=== PATIENT | male | born 1945 | race Caucasian/White ===

== ENCOUNTER 2016-06-29 11:22 | Outpatient (CLI) | payer MEDICARE | END 2016-06-29 11:23 | disposition home or self-care (01) | DX: I48.4 Atypical atrial flutter (principal); I48.91 Unspecified atrial fibrillation ==

== ENCOUNTER 2017-01-23 09:21 | Outpatient (CLI) | payer MEDICARE ==
--- NOTE | 2017-01-24 08:22 | XRAY Report ---
LEFT FOOT: 01/23/2017 COMPARISON STUDY: None. INDICATION: Pain in left foot. TECHNIQUE: Three views of the left foot. FINDINGS: There are mild degenerative changes of the 1st metatarsophalangeal joint. Normal alignment. No evidence of acute fracture. Soft tissues appear grossly unremarkable. IMPRESSION: MILD 1ST MTP OSTEOARTHRITIS. JOB #: [id number] EXT JOB #:[id number]
== END 2017-01-23 09:22 | disposition home or self-care (01) ==
LOC: DI.S 09:21
PROVIDERS: ATTEND Nurse Practitioner Family
DX: M19.072 Primary osteoarthritis, left ankle and foot (principal)

== ENCOUNTER 2017-03-05 15:20 | Outpatient (CLI) | payer MEDICARE ==
--- NOTE | 2017-03-06 11:16 | CT Report ---
CT ABDOMEN AND PELVIS WITHOUT CONTRAST: 03/05/2017 HISTORY: Left lower quadrant pain. COMPARISON: Prostate ultrasound . TECHNIQUE: Axial noncontrast images of the abdomen and pelvis with sagittal and coronal reconstructions. FINDINGS: Linear subsegmental atelectasis or scarring at the lung bases. Negative liver, spleen, adrenal glands, and pancreas for the noncontrast technique. No radiopaque gallstones. Multiple right renal cysts are present, the dominant in the superior pole measuring 8.3 x 6.3 x 8.0 cm. No stones, solid masses, or evidence of obstruction. On the left kidney, there is a dominant lower pole cyst measuring 8.4 x 6.7 x 7.2 cm. Several subcentimeter areas of low attenuation are seen more superiorly, likely cysts but too small to accurately characterize. There is calcification in a normal sized aorta. No free upper abdominal fluid, adenopathy, or abnormal collections. The prostate is enlarged in size with a volume of approximately 100 mL. The bladder is unremarkable. No free fluid or abnormal collections. Minor diverticulosis without diverticulitis. No hernia is appreciated. There is degenerative change in the spine without bone destruction. IMPRESSION: BILATERAL RENAL CYSTS. NO EVIDENCE OF RENAL STONES OR OBSTRUCTION. ENLARGED PROSTATE, VOLUME APPROXIMATELY 100 ML. NO EVIDENCE OF DIVERTICULITIS, HERNIA, ABNORMAL COLLECTIONS OR OTHER FINDING TO EXPLAIN LEFT LOWER QUADRANT PAIN. JOB #: [id number] EXT JOB #: [id number] RIDGE
== END 2017-03-05 15:21 | disposition home or self-care (01) ==
LOC: DI 15:20
PROVIDERS: ATTEND Internal Medicine
DX: R10.32 Left lower quadrant pain (principal); N40.0 Benign prostatic hyperplasia without lower urinary tract symptoms; Q61.02 Congenital multiple renal cysts
CPT/HCPCS: 74176

== ENCOUNTER 2018-05-30 11:57 | Outpatient (CLI) | payer MEDICARE ==
--- NOTE | 2018-05-31 04:12 | XRAY Report ---
Reason: LOW BACK PAIN Procedure Date: 05/30/2018 Accession Number: [id number] / [id number] Procedure: XR - Lumbar Spine 2 View CPT Code: FULL RESULT: EXAM: LUMBOSACRAL SPINE RADIOGRAPHY EXAM DATE: 05/30/2018 12:59 PM. CLINICAL HISTORY: Chronic left-sided low back pain. COMPARISONS: None. TECHNIQUE: 3 views. FINDINGS: Alignment: There is mild rotatory right convex scoliosis of the lumbar spine centered at L3. Bones: Five [id number] lumbar vertebral bodies are present. No fractures or bone lesions. Right-sided sacralization of the lower lumbar vertebral body noted. Disks: Moderate to severe multilevel disk space height loss and endplate osteophytosis. Facets: Hypertrophic right-sided lower lumbar facet arthropathy. Sacroiliac Joints: No evidence of diastases. Mild degenerative change. Soft Tissues: Moderate calcific aortic atherosclerosis. Large amount of retained colonic fecal matter. Other: Moderate to severe right hip and moderate left hip degenerative changes noted. IMPRESSION: 1. No definite acute bone abnormality. 2. There is moderate multilevel lumbar degenerative change. 3. Large amount of retained colonic fecal matter. RADIA
== END 2018-05-30 11:58 | disposition home or self-care (01) ==
LOC: DI 11:57
PROVIDERS: ATTEND Nurse Practitioner Family
DX: M51.36 Other intervertebral disc degeneration, lumbar region (principal)
CPT/HCPCS: 72100

== ENCOUNTER 2020-04-27 17:58 | Emergency (ER) | payer MEDICARE ==
[2020-04-27] MEDS ORDERED: ceFAZolin 2 GM/50 ML 2 GM/50 ML BAG IV ONE (18:14)
--- NOTE | 2020-04-27 18:16 | ED Physician Documentation ---
PD HPI UPPER EXT INJURY - Stated complaint Stated Complaint: RT HAND LAC - Chief complaint Chief Complaint: Laceration - History obtained from History obtained from: Patient - Additonal information Additional information: Right-handed gentleman was working with a table saw at home and injured the second through fifth fingers of his right, dominant hand just prior to arrival. Tetanus is up-to-date, last month. He has a history of atrial fibrillation and is on Pradaxa. Review of Systems Ten Systems: 10 systems reviewed and negative Constitutional: reports: Reviewed and negative Cardiac: reports: Reviewed and negative Respiratory: reports: Reviewed and negative PD PAST MEDICAL HISTORY - Past Medical History Cardiovascular: High cholesterol, Atrial fibrillation, Other Respiratory: None Endocrine/Autoimmune: None GI: None : None HEENT: None Psych: None Musculoskeletal: Osteoarthritis Derm: None - Past Surgical History General: Colonoscopy Ortho: Arthroscopic surgery Cardiovascular: Other HEENT: Tonsil/Adenoidectomy - Present Medications Home Medications: Ambulatory Orders Medication Instructions Recorded Confirmed Sotalol [Betapace] 80 mg PO BID 07/16/13 07/16/13 Zolpidem [Ambien] 10 mg PO HS 07/16/13 07/16/13 lisinopriL [Zestril] 10 mg PO DAILY 07/16/13 07/16/13 Atorvastatin [Lipitor] 20 mg 04/27/20 04/27/20 hydrALAZINE [Apresoline] 25 mg 04/27/20 - Allergies Allergies/Adverse Reactions: Allergies Allergy/AdvReac Type Severity Reaction Status Date / Time No Known Drug Allergies Allergy Verified 04/27/20 18:12 PD ED PE NORMAL - Vitals Vital signs reviewed: Yes - General General: Alert and oriented X 3, Other (He is clearly in pain) - HEENT HEENT: PERRL, EOMI - Neck Neck: Supple, no meningeal sign, No bony TTP - Cardiac Cardiac: No gallop, No rub - Respiratory Respiratory: No respiratory distress, Clear bilaterally - Abdomen Abdomen: Non tender - Back Back: No CVA TTP, No spinal TTP - Extremities Extremities: Other (Complicated lacerations of the right second through fifth digits.) - Neuro Neuro: Alert and oriented X 3, Normal speech - Psych Psych: Normal mood, Normal affect Results - Vitals Vitals: Vital Signs - 24 hr 04/27/20 04/27/20 18:04 21:14 Temperature 37.7 C 37.4 C Heart Rate 79 96 Respiratory 16 16 Rate Blood Pressure 150/99 H 157/93 H O2 Saturation 100 94 Oxygen O2 Source Room air - Labs Labs: Laboratory Tests 04/27/20 04/27/20 04/27/20 18:56 18:56 19:10 WBC 7.6 RBC 4.26 L Hgb 14.3 Hct 42.6 MCV 100.0 H MCH 33.6 H MCHC 33.6 RDW 13.1 Plt Count 165 MPV 9.7 Neut # (Auto) 5.5 Lymph # (Auto) 1.3 L [place] # (Auto) 0.6 Eos # (Auto) 0.2 Baso # (Auto) 0.0 Absolute Nucleated RBC 0.00 Nucleated RBC % 0.0 Sodium 138 Potassium 4.5 Chloride 103 Carbon Dioxide 23 Anion Gap 12.0 BUN 15 Creatinine 1.0 Estimated GFR (MDRD) 73 L Glucose 96 Calcium 9.3 Nasal Adenovirus (PCR) NOT DETECTED Nasal B. parapertussis DNA (PCR) NOT DETECTED Nasal Coronavir 229E PCR NOT DETECTED Nasal Coronavir HKU1 PCR NOT DETECTED Nasal Coronavir NL63 PCR NOT DETECTED Nasal Coronavir OC43 PCR NOT DETECTED Nasal Enterovir/Rhinovir PCR NOT DETECTED Nasal Influenza B PCR NOT DETECTED Nasal Influenza A PCR NOT DETECTED Nasal Parainfluen 1 PCR NOT DETECTED Nasal Parainfluen 2 PCR NOT DETECTED Nasal Parainfluen 3 PCR NOT DETECTED Nasal Parainfluen 4 PCR NOT DETECTED Nasal RSV (PCR) NOT DETECTED Nasal B.pertussis DNA PCR NOT DETECTED Nasal C.pneumoniae (PCR) NOT DETECTED Jeremiah Human Metapneumo PCR NOT DETECTED Nasal M.pneumoniae (PCR) NOT DETECTED Nasal SARS-CoV-2 (PCR) NOT DETECTED Procedures - Splint (location) R hand Splint applied by: Physician Type of splint: Fiberglass, Short arm Other: Patient tolerated well, No complications, Neurovascular intact - Regional nerve block Nerve block site: Digital - note digit(s) (Right 2nd, 3rd, 4th, 5th) Right / left: Right Nerve block anesthesia: Marcaine 0.25% Nerve block aftercare: Excellent anesthesia PD MEDICAL DECISION MAKING - ED course ED course: 75-year-old gentleman who is up-to-date on tetanus presents with complicated hand lacerations of the second through fifth fingers of the dominant, right hand. Initial examination was limited due to pain, but after digital blocks of the second through fifth fingers with 0.525% Marcaine a more focused examination was undertaken: The second finger has an open fracture of the tuft with a little bit of nail loss on the ulnar side and a small laceration. There is a complicated laceration of the third digit crossing the PIP, this digit is unstable at the PIP and although he has some flexor tendon function, the flexor tendon is clearly involved. The fourth digit has an open complicated fracture at the PIP, this digit is also unstable. There seems to be some flexor tendon involvement although there is brisk bleeding from this wound bed so hard to visualize. There is a long laceration down the radial side of the fifth digit, this is unstable. He did seem to have fairly intact cap refill and sensation at the tips of each digit before the digital blocks but again this part of the examination was limited somewhat due to pain. He will need transfer to a higher level of care. Initially [facility] was called, but Dr. Augustine, the e-pro doctor there said he would call his orthopedic physician but it was very unlikely that they would accept this case given the complexity. Subsequently we called [facility] and I spoke with Dr. Meliton Beaver MD, PhD. Who accepted the case but wanted to know what pulse oximetry's were in each of the digits. In the second digit it was 93%, third digit 95%, fourth digit 94%, fifth digit 98%. Departure - Departure Disposition: 02 Transfer Acute Care [facility] Clinical Impression: Open fractures of multiple sites of phalanx of right hand Qualifiers: Encounter type: initial encounter Qualified Code(s): S62.609B - Fracture of unspecified phalanx of unspecified finger, initial encounter for open fracture Flexor tendon laceration of hand with open wound Qualifiers: Encounter type: initial encounter Laterality: right Qualified Code(s): S66.821A - Laceration of other specified muscles, fascia and tendons at wrist and hand level, right hand, initial encounter Condition: Serious Discharge Date/Time: 04/27/20 21:59
[2020-04-27] MEDS ORDERED: HYDROmorphone 1 MG/ML CARPUJECT IVP STA ×3 (18:45→21:39)
[2020-04-27] MEDS ORDERED: ONDANSETRON 4 MG/2 ML VIAL IVP STA (18:45)
--- NOTE | 2020-04-27 19:00 | XRAY Report ---
PROCEDURE: Hand 3 View RT INDICATIONS: hand injuries. TECHNIQUE: 3 views of the hand(s) acquired. COMPARISON: None. FINDINGS: Bones: There is comminuted fracture of the top of second distal phalanx. A fracture is present in the third base of middle phalanx. There is a comminuted fracture with displaced fragment involving the pr oximal the fourth middle phalanx. There are comminuted, displaced fractures of the fifth middle and d istal phalanges with multiple displaced fracture fragments. Soft tissues: Soft tissue welling and lacerations. IMPRESSION: Multiple fractures involving the second, third, fourth, and fifth fingers as described. Reviewed by: Michele Mckeon MD on 04/27/2020 6:59 PM PST Approved by: Michele Mckeon MD on 04/27/2020 6:59 PM PST Station ID: [id number]
[2020-04-27 19:01] LABS: BASOPHILS % (AUTO) 0.4 %; EOSINOPHILS # (AUTO) 0.2 10^3/uL (0.0-0.7); EOSINOPHILS % (AUTO) 2.1 %; HGB - HEMOGLOBIN 14.3 g/dL (14.0-18.0); LYMPHOCYTES # (AUTO) 1.3 10^3/uL (1.5-3.5); LYMPHOCYTES % (AUTO) 17.5 %; MEAN CORPUSCULAR HEMOGLOBIN 33.6 pg (27.0-31.0); MEAN CORPUSCULAR HGB CONC 33.6 g/dL (32.0-36.0); MEAN PLATELET VOLUME 9.7 fL (7.4-11.4); MONOCYTES # (AUTO) 0.6 10^3/uL (0.0-1.0); MONOCYTES % (AUTO) 7.5 %; NEUTROPHILS # (AUTO) 5.5 10^3/uL (1.5-6.6); NEUTROPHILS % (AUTO) 72.2 %; PLT - PLATELET COUNT 165 10^3/uL (130-450); RED BLOOD COUNT 4.26 10^6/uL (4.70-6.10); RED CELL DISTRIBUTION WIDTH 13.1 % (12.0-15.0); WHITE BLOOD COUNT 7.6 x10^3/uL (4.8-10.8)
[2020-04-27 19:10] LABS: CALCIUM 9.3 mg/dL (8.5-10.3)
[2020-04-27 20:46] LABS: C. PNEUMONIAE- RESP PCR PANEL NOT DETECTED
[2020-04-27 21:15] VITALS: BP 157/93
== END 2020-04-27 21:59 | disposition short-term general hospital (02) ==
LOC: ED 17:58
DX: S62.630B Displaced fracture of distal phalanx of right index finger, initial encounter for open fracture (principal); W29.8XXA Contact with other powered hand tools and household machinery, initial encounter; Y92.009 Unspecified place in unspecified non-institutional (private) residence as the place of occurrence of the external cause; I48.91 Unspecified atrial fibrillation; Z79.01 Long term (current) use of anticoagulants; Z20.822 Contact with and (suspected) exposure to COVID-19
CPT/HCPCS: 29125; 36415; 64450; 73130; 80048; 85025; 87631; 96365; 96375; 96376; 99283; 99285; J0690; J1170; 0202U

== ENCOUNTER 2020-04-27 22:05 | Outpatient (CLI) | payer MEDICARE | END 2020-04-27 22:06 | disposition short-term general hospital (02) | LOC: EMS 22:05 | PROVIDERS: ATTEND Surgery | DX: S62.600B Fracture of unspecified phalanx of right index finger, initial encounter for open fracture (principal); S62.602B Fracture of unspecified phalanx of right middle finger, initial encounter for open fracture; S62.604B Fracture of unspecified phalanx of right ring finger, initial encounter for open fracture; S62.606B Fracture of unspecified phalanx of right little finger, initial encounter for open fracture; W29.8XXA Contact with other powered hand tools and household machinery, initial encounter | CPT/HCPCS: A0425; A0426 ==

== ENCOUNTER 2020-05-01 16:46 | Emergency (ER) | payer MEDICARE ==
[2020-05-01 17:34] LABS: BASOPHILS % (AUTO) 0.3 %; EOSINOPHILS # (AUTO) 0.1 10^3/uL (0.0-0.7); EOSINOPHILS % (AUTO) 0.7 %; HGB - HEMOGLOBIN 12.7 g/dL (14.0-18.0); LYMPHOCYTES # (AUTO) 0.8 10^3/uL (1.5-3.5); LYMPHOCYTES % (AUTO) 8.6 %; MEAN CORPUSCULAR HEMOGLOBIN 33.2 pg (27.0-31.0); MEAN CORPUSCULAR HGB CONC 32.6 g/dL (32.0-36.0); MEAN CORPUSCULAR VOLUME 102.1 fL (80.0-94.0); MEAN PLATELET VOLUME 9.9 fL (7.4-11.4); MONOCYTES # (AUTO) 0.8 10^3/uL (0.0-1.0); MONOCYTES % (AUTO) 8.3 %; NEUTROPHILS # (AUTO) 7.9 10^3/uL (1.5-6.6); NEUTROPHILS % (AUTO) 81.7 %; PLT - PLATELET COUNT 153 10^3/uL (130-450); RED BLOOD COUNT 3.82 10^6/uL (4.70-6.10); WHITE BLOOD COUNT 9.7 x10^3/uL (4.8-10.8)
--- NOTE | 2020-05-01 17:36 | ED Physician Documentation ---
History of Present Illness - Stated complaint Stated Complaint: RAPID HR, HIGH BP, NAUSEA, NUMBNESS IN LEFT HAND - Chief complaint Chief Complaint: Cardiac - Additonal information Additional information: 75-year-old male presents the emergency department for evaluation of chest palpitations. He has an unfortunate history that includes a table saw injury to his right hand 4 days ago that required a subsequent transfer to [facility] where he underwent surgery for repair of const located lacerations open fractures and flexor tendon injury. Upon discharge she was given a prescription for oxycodone and has been constipated for nearly a week. This afternoon at 3p he was straining to have a bowel movement and he said it took quite a bit of effort in order to be successful while straining he began feeling palpitations but denied that he had chest pain. He reports that he did have an adequate and very large bowel movement but since then has been very aware of his heart rate and has tingling in his left hand. He did call the nurse advice line and was advised to come to the emergency department for further evaluation. He denies dyspnea, no cough or fevers. No slurred speech, no facial droop, no arm or extremity weakness with the exception of the casting in the right arm. denies pleuritic chest pain He does have a history of atrial fibrillation he is on Pradaxa and rate controlled on diltizem. He arrives in the emergency department well-appearing. His EKG does show atrial fibrillation rate of 77. Right upper extremity is in a postoperative splint/cast. He has follow-up scheduled in about 1 week with Larry cru[facility]. Review of Systems Constitutional: reports: Reviewed and negative Cardiac: reports: Palpitations. denies: Chest pain / pressure, Pedal edema, Calf pain Respiratory: denies: Dyspnea, Cough GI: reports: Constipation : reports: Reviewed and negative Skin: reports: Reviewed and negative Musculoskeletal: reports: Extremity pain (right UE) PD PAST MEDICAL HISTORY - Past Medical History Cardiovascular: High cholesterol, Atrial fibrillation, Other Respiratory: None Neuro: None Endocrine/Autoimmune: None GI: None : None HEENT: None Psych: None Musculoskeletal: Osteoarthritis Derm: None - Past Surgical History Past Surgical History: Yes General: Colonoscopy Ortho: Arthroscopic surgery Cardiovascular: Other HEENT: Tonsil/Adenoidectomy - Present Medications Home Medications: Ambulatory Orders Medication Instructions Recorded Confirmed Acetaminophen [Tylenol] 1 tab PO Q6HR PRN 05/01/20 05/01/20 Atorvastatin [Lipitor] 1 tab PO DAILY 05/01/20 05/01/20 Dabigatran Etexilate Mesylate 1 tab PO BID 05/01/20 05/01/20 [Pradaxa] Diltiazem HCl [Diltiazem 12Hr ER] 1 tab PO DAILY 05/01/20 05/01/20 Lisinopril [Zestril] 1 tab PO BID 05/01/20 05/01/20 Senna [Senokot] 1 tab PO BID 05/01/20 05/01/20 hydrALAZINE [Apresoline] 1 tab PO BID 05/01/20 05/01/20 oxyCODONE [Roxicodone] 1 tab PO Q4HR PRN 05/01/20 05/01/20 - Allergies Allergies/Adverse Reactions: Allergies Allergy/AdvReac Type Severity Reaction Status Date / Time No Known Drug Allergies Allergy Verified 05/01/20 16:50 - Social History Does the pt smoke?: No Smoking Status: Never smoker PD ED PE EXPANDED - General General: Alert, Anxious - Neck Neck: Supple w/out meningeal sx. No: Adenopathy - Cardiac Cardiac: Irregularly irregular, Murmur Present, Radial strong equal (left arm), Pedal strong equal (Bilateral pedal) - Respiratory Respiratory: Clear to ausultation dilip. No: Distress, Labored - Abdomen Abdomen: Normal Bowel sounds. No: Tender to palpation - Derm Derm: Normal color, Warm and dry, Other - Neuro Neuro: Alert and Oriented X 3, CNII-XII intact, Cerebellar nl, Normal gait, Normal finger nose, Normal speech. No: Nystagmus - GCS Eye Opening: Spontaneous Motor: Obeys Commands Verbal: Oriented Total: 15 Results - Vitals Vitals: Vital Signs - 24 hr 05/01/20 05/01/20 16:50 18:00 Temperature 36.9 C Heart Rate 100 90 Respiratory 18 16 Rate Blood Pressure 146/93 H 141/87 H O2 Saturation 97 98 Oxygen O2 Source Room air - EKG (time done) 1658 Rate: Rate (enter#) (77) Rhythm: Atrial fibrillation QRS: Poor R wave progression Ischemia: Non specific changes Compare to prior EKG: Unchanged from prior EKG Computer interpretation: Agree with computer - Labs Labs: Laboratory Tests 05/01/20 05/01/20 05/01/20 17:16 17:16 17:16 WBC 9.7 RBC 3.82 L Hgb 12.7 L Hct 39.0 L MCV 102.1 H MCH 33.2 H MCHC 32.6 RDW 13.0 Plt Count 153 MPV 9.9 Neut # (Auto) 7.9 H Lymph # (Auto) 0.8 L [place] # (Auto) 0.8 Eos # (Auto) 0.1 Baso # (Auto) 0.0 Absolute Nucleated RBC 0.00 Nucleated RBC % 0.0 Sodium 134 L Potassium 4.3 Chloride 99 L Carbon Dioxide 26 Anion Gap 9.0 BUN 14 Creatinine 0.9 Estimated GFR (MDRD) 82 L Glucose 99 Calcium 9.1 Total Bilirubin 1.3 H AST 26 ALT 15 Alkaline Phosphatase 49 Troponin I High Sens 5.3 Total Protein 6.8 Albumin 4.1 Globulin 2.7 Albumin/Globulin Ratio 1.5 Lipase 18 L - Rads (name of study) CXR Radiology: Final report received (Unremarkable portable chest for age.) PD MEDICAL DECISION MAKING - ED course Complexity details: reviewed results, re-evaluated patient, considered differential, d/w patient ED course: 75-year-old male presents to the emergency department for evaluation of chest palpitations and tingling in his left hand. The symptoms occurred when he was on the commode straining to have a bowel movement. He did been 6 days since a bowel movement as he required hospitalization 4 days ago for a severe right hand saw injury. He had been on oxycodone and was taking MiraLAX for constipation. On initial presentation here to the emergency department he was quite anxious appearing but denied any chest pain, chest pressure or shortness of air. His EKG showed atrial fibrillation which was already known and no ischemic changes. High-sensitivity troponin was negative. Screening labs including a CBC were a lso unremarkable. No leukocytosis. This gentleman has no shortness of breath or hypoxia. He has no unilateral leg swelling. I did discuss with this gentleman the possibility of a pulmonary embolus however he is already on Pradaxa and the likelihood that he has a clinically significant pulmonary embolus is quite low. After a risk-benefit discussion he elected not to proceed with a CT pulmonary angiogram. However he was notified that he could return to the ER at any time for reevaluation. The etiology of the tingling in the left hand is unclear. His electrolytes are not without significant abnormality. He has no focal neuro signs or cerebellar signs. My suspicion for a CVA or dissection is exceedingly low. This gentleman at this time appears clinically stable and will be discharged home. Emergent return precautions are discussed Departure - Departure Disposition: Home, Self Care Clinical Impression: Palpitations Atrial fibrillation Qualifiers: Atrial fibrillation type: longstanding persistent Qualified Code(s): I48.11 - Longstanding persistent atrial fibrillation Constipation Qualifiers: Constipation type: drug induced constipation Qualified Code(s): K59.03 - Drug induced constipation Condition: Stable Record reviewed to determine appropriate education?: Yes Instructions: ED Constipation, Atrial Fibrillation Dc Follow-Up: Campbell Meadows MD [Primary Care Provider] - Comments: Sigifredo I am glad that you are feeling better. Your palpitations are most likely related to the straining you had to have a bowel movement. I am glad that you did have a large bowel movement. I do recommend that you continue to take the MiraLAX once or twice daily for the next 2 to 3 days to fully ensure the constipation is resolved. Your chest x-ray today here is unremarkable. Your EKG does show the atrial fibrillation but there were no worrisome changes in your heart rhythm. The screening labs that we did were also unrevealing. Your white blood cell count is normal which is very important after surgery. The troponin that we talked about which can measure heart ischemia was unremarkable. You were offered a CAT scan of your chest to definitively rule out a pulmonary embolus but this was declined at this time. If at any point your symptoms worsen, you have fevers, chest pain, chest pressure or shortness of air please return immediately to the ER. Please continue to follow-up with your primary care doctor on Sunday as already scheduled.
--- NOTE | 2020-05-01 17:41 | XRAY Report ---
PROCEDURE: Chest 1 View X-Ray INDICATIONS: Chest Pain TECHNIQUE: One view of the chest was acquired. COMPARISON: None. FINDINGS: Surgical changes and devices: None. Lungs and pleura: No pleural effusions or pneumothorax. Lungs are clear. Mediastinum: The aorta is prominent and tortuous. The cardiac contours are within normal limits. Bones and chest wall: No suspicious bony lesions. Age-appropriate degenerative changes are seen. Overlying soft tissues appear unremarkable. IMPRESSION: Unremarkable portable chest for age. Reviewed by: Leoncio Lawler MD on 05/01/2020 4:39 PM [facility] [[email or web address]] Approved by: Leoncio Lawler MD on 05/01/2020 4:39 PM [facility] [[email or web address]] Station ID: [id number]
[2020-05-01 17:46] LABS: ALBUMIN 4.1 g/dL (3.2-5.5); ALBUMIN/GLOBULIN RATIO 1.5 (1.0-2.2); BILIRUBIN,TOTAL 1.3 mg/dL (0.2-1.0); CALCIUM 9.1 mg/dL (8.5-10.3); CREATININE 0.9 mg/dL (0.6-1.2); TOTAL PROTEIN 6.8 g/dL (6.7-8.2)
[2020-05-01 18:32] VITALS: BP 138/75
== END 2020-05-01 18:25 | disposition home or self-care (01) ==
LOC: ED 16:46
DX: I48.11 Longstanding persistent atrial fibrillation (principal); Z79.01 Long term (current) use of anticoagulants; K59.03 Drug induced constipation; T40.2X5A Adverse effect of other opioids, initial encounter; R20.2 Paresthesia of skin; Z98.890 Other specified postprocedural states
CPT/HCPCS: 36415; 80053; 83690; 84484; 85025; 93005; 99284